=== PATIENT | female | born 2000 | race Two or more races ===

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

== ENCOUNTER → 2021-12-27 | Outpatient (REF) | payer BC | LOC: M LAB REF 22:17 | PROVIDERS: ATTEND Physician Assistant | DX: J02.9 Acute pharyngitis, unspecified (principal) ==

== ENCOUNTER → 2022-01-23 | Outpatient (REF) | payer BC, MEDICAID | LOC: M LAB REF 12:02 | PROVIDERS: ATTEND Physician Assistant | DX: B34.9 Viral infection, unspecified (principal) ==

== ENCOUNTER → 2022-11-06 | Outpatient (REF) | payer BC, MEDICAID | LOC: M SFHCWAGY 12:58 | PROVIDERS: ATTEND Nurse Practitioner Family | DX: Z12.4 Encounter for screening for malignant neoplasm of cervix (principal); Z01.419 Encounter for gynecological examination (general) (routine) without abnormal findings; Z77.9 Other contact with and (suspected) exposures hazardous to health ==

== ENCOUNTER 2023-07-16 10:25 | Outpatient (CLI) | payer MEDICAID ==
[~2023-07-16] VITALS: Ht 154.9 cm; Wt 68.2 kg
[2023-07-16 10:45] VITALS: BP 108/64
[2023-07-16] MEDS ORDERED: ONDA-83 PO (10:49)
[2023-07-16] MEDS ORDERED: CLON1TAB17 PO (10:49)
[2023-07-16] MEDS ORDERED: BUSP10TA PO (10:49)
[2023-07-16] MEDS ORDERED: PRENTAB9 PO (10:49)
[2023-07-16] MEDS ORDERED: LEXA1TAB2 PO (10:49)
[2023-07-16] MEDS ORDERED: MONI4CRE3 PV (10:55)
[2023-07-16] MEDS ORDERED: HOME MED LIST COMPLETE! XX SCH (10:55)
[2023-07-16 12:28] LABS: HEMATOCRIT 34.3 % (36.0-47.0); HEMOGLOBIN 11.8 g/dl (12.0-15.5); MEAN CORPUSCULAR HEMOGLOBIN 31.1 pg (27.0-33.0); MEAN CORPUSCULAR HGB CONC 34.4 g/dl (32.0-36.5); MEAN CORPUSCULAR VOLUME 90.5 fl (80.0-96.0); PLATELET COUNT, AUTOMATED 215 10^3/uL (150-450); RED BLOOD COUNT 3.79 10^6/uL (4.00-5.40); WHITE BLOOD COUNT 10.8 10^3/uL (4.0-10.0)
[2023-07-16 12:36] VITALS: BP 104/54
[2023-07-16 12:48] LABS: METHADONE URINE REFLEX NEGATIVE (NEGATIVE); OPIATES URINE REFLEX NEGATIVE (NEGATIVE); PHENCYCLIDINE URINE REFLEX NEGATIVE (NEGATIVE)
[2023-07-16 12:49] LABS: AMPHETAMINES URINE REFLEX NEGATIVE (NEGATIVE); BARBITURATES URINE REFLEX NEGATIVE (NEGATIVE); BENZODIAZEPINES URINE REFLEX NEGATIVE (NEGATIVE); CANNABINOIDS URINE REFLEX NEGATIVE (NEGATIVE); COCAINE METABOLITE URINE REFLE NEGATIVE (NEGATIVE)
[2023-07-16 12:53] LABS: ALBUMIN 2.7 G/DL (3.2-5.2); ALKALINE PHOSPHATASE 71 U/L (46-116); ALT/SGPT < 9 U/L (7.0-40); AST/SGOT 12 U/L (<34); BILIRUBIN,TOTAL 0.3 MG/DL (0.3-1.2); BLOOD UREA NITROGEN 10 MG/DL (9-23); CALCIUM LEVEL 9.2 MG/DL (8.5-10.1); CARBON DIOXIDE LEVEL 26 MMOL/L (20-31); CHLORIDE LEVEL 107 MMOL/L (98-107); CREATININE FOR GFR 0.56 MG/DL (0.55-1.30); GLOMERULAR FILTRATION RATE > 60.0 (>60); GLUCOSE, FASTING 92 MG/DL (60-100); POTASSIUM SERUM 4.1 MMOL/L (3.5-5.1); SODIUM LEVEL 137 MMOL/L (136-145); TOTAL PROTEIN 5.5 G/DL (5.7-8.2)
== END 2023-07-16 14:00 | disposition home or self-care (01) ==
LOC: M LDO 10:25
PROVIDERS: ATTEND Obstetrics & Gynecology
DX: O26.892 Other specified pregnancy related conditions, second trimester (principal); R42 Dizziness and giddiness; O99.342 Other mental disorders complicating pregnancy, second trimester; F41.1 Generalized anxiety disorder; F41.0 Panic disorder [episodic paroxysmal anxiety]; O44.02 Complete placenta previa NOS or without hemorrhage, second trimester; Z3A.25 25 weeks gestation of pregnancy
CPT/HCPCS: 59025; 80053; 80307; 85027; G0463

== ENCOUNTER 2023-07-27 16:20 | Outpatient (CLI) | payer BC, MEDICAID ==
[~2023-07-27] VITALS: Ht 154.9 cm; Wt 66.0 kg
[~2023-07-27 16:20] MED LIST: BUSP10TA PO; CLON1TAB17 PO; LEXA1TAB2 PO; MONI4CRE3 PV; ONDA-83 PO; PRENTAB9 PO
[2023-07-27] MEDS ORDERED: HOME MED LIST COMPLETE! XX SCH (16:40)
[2023-07-27 16:41] VITALS: BP 100/66
[2023-07-27] MEDS: FLUCONAZOLE 50MG TABLET PO ONE (17:49)
[2023-07-27] MEDS: LACTATED RINGER'S 1000 ML IV ONE (19:03)
[2023-07-27 19:06] VITALS: BP 102/62
[2023-07-27] MEDS: TERBUTALINE SULFATE 1 MG/ML 1ML VIAL SC ONE (19:58)
[2023-07-27] MEDS: LR 1,000 ML IV SCH (19:59)
[2023-07-27 20:01] VITALS: BP 105/64
[2023-07-27 21:10] VITALS: BP 110/73
[2023-07-27 23:15] LABS: GC DNA AMPLIFICATION NEGATIVE (NEGATIVE)
[2023-07-28] MEDS ORDERED: OXYTOCIN 30UNITS IN 0.9% NaCl 500ML IV BAG As Ordered ONE (00:06)
[2023-07-28 00:46] VITALS: BP 98/51
[2023-07-28 05:36] VITALS: BP 102/52
[2023-07-28 09:35] VITALS: BP 105/54
== END 2023-07-28 10:02 | disposition home or self-care (01) ==
LOC: M LDO 16:20
PROVIDERS: ATTEND Obstetrics & Gynecology
DX: O23.592 Infection of other part of genital tract in pregnancy, second trimester (principal); B37.9 Candidiasis, unspecified; Z3A.26 26 weeks gestation of pregnancy
CPT/HCPCS: 59025; 76815; 81001; 87070; 87077; 87086; 87205; 87810; 87850; G0463; J3105

== ENCOUNTER 2023-09-26 13:52 | Outpatient (CLI) | payer BC, MEDICAID ==
[~2023-09-26] VITALS: Ht 154.9 cm; Wt 73.8 kg
[~2023-09-26 13:52] MED LIST changes: +BUSP10TA; +CEFD1CAP9; +CEPH500C PO; +CLON1TAB8; +ESCITALOPRAM; +FLUC150T9 PO; +LEXA1TAB2; +MICO2CRE7 PV; +ONDA-284; +REGL10TA6 PO
[2023-09-26 14:09] VITALS: BP 109/67
[2023-09-26 15:37] LABS: HEMATOCRIT 34.4 % (36.0-47.0); HEMOGLOBIN 11.5 g/dl (12.0-15.5); MEAN CORPUSCULAR HEMOGLOBIN 29.5 pg (27.0-33.0); MEAN CORPUSCULAR HGB CONC 33.4 g/dl (32.0-36.5); MEAN CORPUSCULAR VOLUME 88.2 fl (80.0-96.0); PLATELET COUNT, AUTOMATED 185 10^3/uL (150-450); WHITE BLOOD COUNT 12.1 10^3/uL (4.0-10.0)
[2023-09-26 15:39] VITALS: BP 109/77
[2023-09-26 15:52] LABS: INR 0.95; PARTIAL THROMBOPLASTIN TIME 25.1 SECONDS (24.8-34.2); PROTHROMBIN TIME 12.5 SECONDS (12.5-14.5)
[2023-09-26] MEDS: LR 1,000 ML IV ONE (16:10)
== END 2023-09-26 18:10 | disposition home or self-care (01) ==
LOC: M LDO 13:52 → MERGE 13:52 → M LDO 18:10
PROVIDERS: ATTEND Advanced Practice Midwife
DX: O36.8130 Decreased fetal movements, third trimester, not applicable or unspecified (principal); O99.343 Other mental disorders complicating pregnancy, third trimester; F41.0 Panic disorder [episodic paroxysmal anxiety]; Z3A.35 35 weeks gestation of pregnancy
CPT/HCPCS: 36415; 59025; 76815; 76817; 76820; 85027; 85384; 85460; 85610; 85730; G0463

== ENCOUNTER → 2023-10-03 | Outpatient (REF) | payer BC, MEDICAID ==
[~2023-10-03] MED LIST changes: +CLON2TAB14 PO
== END ==
LOC: M SFHCWAGY 12:10
PROVIDERS: ATTEND Specialist
DX: N39.0 Urinary tract infection, site not specified (principal); Z34.83 Encounter for supervision of other normal pregnancy, third trimester

== ENCOUNTER 2023-10-05 14:00 | Outpatient (CLI) | payer BC, MEDICAID ==
[~2023-10-05] VITALS: Ht 154.9 cm; Wt 73.7 kg
[~2023-10-05 14:00] MED LIST changes: -CLON2TAB14 PO
[2023-10-05] MEDS ORDERED: CLON2TAB14 PO (14:11)
[2023-10-05] MEDS ORDERED: HOME MED LIST COMPLETE! XX SCH (14:15)
[2023-10-05 14:20] VITALS: BP 123/76
[2023-10-05 14:22] VITALS: O2SAT 97
== END 2023-10-05 15:23 | disposition home or self-care (01) ==
LOC: M LDO 14:00
PROVIDERS: ATTEND Specialist
DX: O26.893 Other specified pregnancy related conditions, third trimester (principal); O99.343 Other mental disorders complicating pregnancy, third trimester; M46.1 Sacroiliitis, not elsewhere classified; F41.0 Panic disorder [episodic paroxysmal anxiety]; Z3A.36 36 weeks gestation of pregnancy
CPT/HCPCS: 59025; G0463

== ENCOUNTER → 2023-10-09 | Outpatient (CLI) | payer BC, MEDICAID ==
[~2023-10-09] MED LIST changes: +CLON2TAB14 PO
== END ==
LOC: M PLAIMG 09:34
PROVIDERS: ATTEND Nurse Practitioner Family
DX: R55 Syncope and collapse (principal)

== ENCOUNTER 2023-10-12 16:50 | Outpatient (CLI) | payer BC, MEDICAID ==
[~2023-10-12] VITALS: Ht 154.9 cm; Wt 74.5 kg
[~2023-10-12 16:50] MED LIST changes: -LEXA1TAB2; -ONDA-284; +ONDA-284 SL
[2023-10-12 17:01] VITALS: BP 106/65; O2SAT 97
[2023-10-12 19:02] VITALS: BP 110/68
[2023-10-12 19:19] LABS: GC DNA AMPLIFICATION NEGATIVE (NEGATIVE)
== END 2023-10-12 20:09 | disposition home or self-care (01) ==
LOC: M LDO 16:50
PROVIDERS: ATTEND Obstetrics & Gynecology
DX: O47.1 False labor at or after 37 completed weeks of gestation (principal); O99.343 Other mental disorders complicating pregnancy, third trimester; F41.0 Panic disorder [episodic paroxysmal anxiety]; Z3A.37 37 weeks gestation of pregnancy
CPT/HCPCS: 59025; 81001; 87086; 87810; 87850; G0463

== ENCOUNTER 2023-10-18 14:14 | Outpatient (CLI) | payer BC, MEDICAID ==
[~2023-10-18] VITALS: Ht 154.9 cm; Wt 74.9 kg
[~2023-10-18 14:14] MED LIST changes: +LEXA1TAB2; +ONDA-284; -ONDA-284 SL
[2023-10-18 14:33] VITALS: BP 111/74
[2023-10-18] MEDS ORDERED: HOME MED LIST COMPLETE! XX SCH (14:40)
== END 2023-10-18 15:47 | disposition home or self-care (01) ==
LOC: M LDO 14:14
PROVIDERS: ATTEND Obstetrics & Gynecology
DX: O47.1 False labor at or after 37 completed weeks of gestation (principal); O99.343 Other mental disorders complicating pregnancy, third trimester; F41.0 Panic disorder [episodic paroxysmal anxiety]; Z3A.38 38 weeks gestation of pregnancy
CPT/HCPCS: 59025; G0463

== ENCOUNTER 2023-10-21 20:53 | Inpatient (IN) | payer BC, MEDICAID ==
[~2023-10-21] VITALS: Ht 154.9 cm; Wt 75.4 kg
[~2023-10-21 20:53] MED LIST changes: -LEXA1TAB2; -ONDA-284; +ONDA-284 SL
[2023-10-21 21:23] VITALS: BP 120/82; O2SAT 98
[2023-10-21] MEDS ORDERED: OXYTOCIN DRIP 30 UNITS in IV 1 EA IV PRN (21:25)
[2023-10-21] MEDS ORDERED: TRANEXAMIC ACID INJection 1,000 MG in NS 100 ML IV PRN (21:25)
[2023-10-21] MEDS ORDERED: LIDOCAINE 1% MDV 20ML VIAL INFIL PRN (21:25)
[2023-10-21 21:55] LABS: HEMATOCRIT 36.9 % (36.0-47.0); HEMOGLOBIN 12.5 g/dl (12.0-15.5); MEAN CORPUSCULAR HEMOGLOBIN 29.2 pg (27.0-33.0); MEAN CORPUSCULAR HGB CONC 33.9 g/dl (32.0-36.5); MEAN CORPUSCULAR VOLUME 86.2 fl (80.0-96.0); PLATELET COUNT, AUTOMATED 189 10^3/uL (150-450); RED BLOOD COUNT 4.28 10^6/uL (4.00-5.40); WHITE BLOOD COUNT 14.7 10^3/uL (4.0-10.0)
[2023-10-21 22:48] VITALS: BP 131/79
[2023-10-21] MEDS: miSOPROStol 50MCG 1/2 TABLET PO SCH (22:48)
[2023-10-21] MEDS ORDERED: ONDANSETRON 4MG 2ML VIAL IV PRN (22:50)
[2023-10-21 23:05] LABS: HEPATITIS C VIRUS ABY INDEX < 0.02 INDEX (<0.8)
[2023-10-21 23:49] VITALS: BP 119/75
[2023-10-22] VITALS (48 sets, daily range): BP systolic 91–139; BP diastolic 55–78; O2SAT 97–100
[2023-10-22] MEDS ORDERED: NALOXONE INJ 0.4MG/1ML VIAL IV PRN (02:15)
[2023-10-22] MEDS ORDERED: diphenhydrAMINE 50MG/ML VIAL IV PRN (02:15)
[2023-10-22] MEDS ORDERED: LR 500 ML IV PRN (02:15)
[2023-10-22] MEDS ORDERED: ePHEDrine SULFATE 25 MG/5 ML(5MG/ML) SYRINGE IVP PRN (02:15)
[2023-10-22] MEDS ORDERED: EPIDURAL/PCA KEYS XX PRN (02:15)
[2023-10-22] MEDS: FENTANYL/ROPIVACAINE/NACL BAG 100 ML EPIDURAL SCH (03:02)
[2023-10-22] MEDS: ONDANSETRON 4MG 2ML VIAL IV PRN ×2 (03:30→11:44)
[2023-10-22] MEDS: ACETAMINOPHEN 500 MG TAB PO PRN (03:45)
[2023-10-22] MEDS: OXYTOCIN DRIP 30 UNITS in IV 1 EA IV SCH (04:19)
[2023-10-22] MEDS: LR 1,000 ML IV SCH (04:19)
[2023-10-22] MEDS: PRENATAL VITAMINS CHEWABLE TABLET PO SCH (09:00)
[2023-10-22] MEDS: OXYTOCIN DRIP 30 UNITS in IV 1 EA IV PRN (09:51)
[2023-10-22] MEDS: METHYLERGONOVINE MALEATE 0.2MG/ML 1ML VIAL IM PRN (10:06)
[2023-10-22] MEDS ORDERED: RHO(D) IMMUNE GLOBULIN/MALTOSE 500MCG(2500IU)/2.2ML VIAL (WINRHO) IM SCH (10:25)
[2023-10-22] MEDS ORDERED: DOCUSATE SODIUM 100MG CAPSULE PO PRN (10:25)
[2023-10-22] MEDS ORDERED: METHYLERGONOVINE MALEATE 0.2 MG TAB PO PRN (10:25)
[2023-10-22] MEDS: IBUPROFEN 600MG TAB PO PRN (11:23)
[2023-10-22] MEDS ORDERED: CLON1TAB17 PO (11:51)
[2023-10-22] MEDS ORDERED: CLON1TAB8 PO (11:58)
[2023-10-22] MEDS: busPIRone 10 MG TAB PO SCH (12:15)
[2023-10-22] MEDS: ESCITALOPRAM OXALATE 10 MG TAB (LEXAPRO) PO SCH (12:15)
[2023-10-22] MEDS: DIBUCAINE 1% OINTMENT 30GM TOP PRN (13:27)
[2023-10-22] MEDS: clonazePAM 1 MG TAB PO SCH (21:53)
[2023-10-23] MEDS: ACETAMINOPHEN TAB 650MG DOSE (2X325MG) PO PRN (03:01)
[2023-10-23 06:00] VITALS: BP 102/60; O2SAT 98
[2023-10-23] MEDS: IBUPROFEN 800 MG TAB PO PRN (08:25)
[2023-10-24] MEDS ORDERED: MEASLES,MUMPS,RUBELLA VACCINE INJ (MMR-II) SC.IMMUN ONE (09:00)
== END 2023-10-23 16:45 | disposition home or self-care (01) | DRG 560 ==
LOC: M LDI 20:53 → M OBS 10-22 12:47
PROVIDERS: ADMIT Obstetrics & Gynecology; ATTEND Advanced Practice Midwife
PROC: 3E0P7GC Introduction of Other Therapeutic Substance into Female Reproductive, Via Natural or Artificial Opening (ICD-10-PCS; 2023-10-21)
PROC: 10E0XZZ Delivery of Products of Conception, External Approach (ICD-10-PCS; principal; 2023-10-22)
PROC: 0HQ9XZZ Repair Perineum Skin, External Approach (ICD-10-PCS; 2023-10-22)
DX: O69.81X0 Labor and delivery complicated by cord around neck, without compression, not applicable or unspecified (principal); O77.0 Labor and delivery complicated by meconium in amniotic fluid; Z3A.39 39 weeks gestation of pregnancy; Z79.899 Other long term (current) drug therapy; O70.0 First degree perineal laceration during delivery; Z37.0 Single live birth

== ENCOUNTER → 2024-10-21 | Outpatient (CLI) | payer BC, MEDICAID ==
[~2024-10-21] MED LIST changes: +CLON1TAB8 PO
[2024-10-21 13:50] LABS: BASO # 0.1 10^3/uL (0.0-0.2); BASO % 0.7 % (0.0-1.0); EOS # 0.1 10^3/uL (0.0-0.5); EOS % 1.6 % (0.0-3.0); LYMPH # 2.6 10^3/uL (1.5-5.0); LYMPH % 31.0 % (24.0-44.0); MONO # 0.8 10^3/uL (0.0-0.8); MONO % 9.1 % (2.0-8.0); NEUTROPHILS # 4.8 10^3/uL (1.5-8.5); NEUTROPHILS % 57.2 % (36.0-66.0); PLATELET COUNT, AUTOMATED 260 10^3/uL (150-450)
[2024-10-21 14:21] LABS: IRON (FE) 117.0 UG/DL (50-170); PERCENT SATURATION 29.7 % (13.2-45.0)
[2024-10-21 14:25] LABS: FREE T4 1.1 NG/DL (0.89-1.76)
[2024-10-21 14:28] LABS: TOTAL 25(OH) VITAMIN D 48.2 NG/ML (20.0-100.0); VITAMIN B12 LEVEL 319.0 PG/ML (211-911)
== END ==
LOC: M LAB 12:29
PROVIDERS: ATTEND Nurse Practitioner Family
DX: R53.83 Other fatigue (principal)

== ENCOUNTER → 2025-01-04 | Outpatient (REF) | payer BC, MEDICAID | LOC: M LAB REF 12:04 | PROVIDERS: ATTEND Physician Assistant | DX: B34.9 Viral infection, unspecified (principal) ==

== ENCOUNTER 2025-01-12 10:57 | Emergency (ER) | payer BC, MEDICAID ==
[~2025-01-12] VITALS: Ht 152.4 cm; Wt 66.3 kg
[2025-01-12 11:04] VITALS: TEMP 97.9
[2025-01-12 12:20] LABS: KETONE, URINE AUTO RFX NEGATIVE (NEGATIVE); MUCUS, URINE RFX SMALL (NEGATIVE); NITRITE, URINE AUTO RFX NEGATIVE (NEGATIVE); RBC, URINE AUTO RFX 3 /HPF (0-3); SQUAM EPITHELIAL CELL UR AURFX 0 /HPF (0-6); WBC, URINE AUTO RFX 1 /HPF (0-3)
[2025-01-12 12:22] LABS: BASO # 0.0 10^3/uL (0.0-0.2); BASO % 0.1 % (0.0-1.0); EOS # 0.0 10^3/uL (0.0-0.5); EOS % 0.1 % (0.0-3.0); LYMPH # 1.8 10^3/uL (1.5-5.0); LYMPH % 22.5 % (24.0-44.0); MONO # 0.5 10^3/uL (0.0-0.8); MONO % 6.8 % (2.0-8.0); NEUTROPHILS # 5.6 10^3/uL (1.5-8.5); NEUTROPHILS % 70.4 % (36.0-66.0); PLATELET COUNT, AUTOMATED 217 10^3/uL (150-450)
[2025-01-12 12:34] LABS: LEUKOCYTE ESTERASE UR AUTO RFX 1+ (NEGATIVE)
[2025-01-12 12:47] LABS: ALT/SGPT 22 U/L (7.0-40); AST/SGOT 26 U/L (<34); CALCIUM LEVEL 9.2 MG/DL (8.5-10.1); CARBON DIOXIDE LEVEL 28 MMOL/L (20-31); CHLORIDE LEVEL 105 MMOL/L (98-107); CREATININE FOR GFR 0.85 MG/DL (0.55-1.30); GLOMERULAR FILTRATION RATE > 90.0 (>60); POTASSIUM SERUM 4.1 MMOL/L (3.5-5.1); SODIUM LEVEL 143 MMOL/L (136-145)
[2025-01-12 12:49] LABS: HCG, SERUM QUALITATIVE NEGATIVE (NEGATIVE)
[2025-01-12] MEDS ORDERED: DOXY100C3 PO (12:59)
[2025-01-12] MEDS ORDERED: [UNRECOGNIZED DRUG - CODE] PO (13:00)
[2025-01-12 13:34] LABS: Trichomonas vaginalis (AMP) NOT DETECTED (NEGATIVE)
[2025-01-12 13:58] LABS: GC DNA AMPLIFICATION NEGATIVE (NEGATIVE)
[2025-01-12] MEDS: NS (Normal Saline) 0.9% 1,000 ML IV ONE (14:20)
[2025-01-12] MEDS ORDERED: ISOVUE-370 76% 100 ML VIAL As Ordered ONE (15:39)
[2025-01-12] MEDS: KETOROLAC 30 MG/ML 1 ML VIAL IV ONE (16:07)
[2025-01-12] MEDS ORDERED: PROM25TA12 PO (17:26)
[2025-01-12 17:34] VITALS: BP 102/66; O2SAT 99
== END 2025-01-12 17:40 | disposition home or self-care (01) ==
LOC: M ED 10:57
DX: R10.9 Unspecified abdominal pain (principal); J91.8 Pleural effusion in other conditions classified elsewhere; Z79.899 Other long term (current) drug therapy
CPT/HCPCS: 74177; 76830; 76856; 80048; 80076; 81001; 83690; 84703; 85025; 87086; 87661; 87810; 87850; 93976; 96361; 96374; 99284; J1885; Q9967

== ENCOUNTER → 2025-02-16 | Outpatient (REF) | payer BC, MEDICAID ==
[~2025-02-16] MED LIST changes: +DOXY100C3 PO; +PROM25TA12 PO; +[UNRECOGNIZED DRUG - CODE] PO
== END ==
LOC: M PLALAB 10:18
PROVIDERS: ATTEND Student in an Organized Health Care Education/Training Program
DX: N87.1 Moderate cervical dysplasia (principal)

== ENCOUNTER 2025-02-27 11:23 | Emergency (ER) | payer BC, MEDICAID ==
[~2025-02-27] VITALS: Ht 152.4 cm; Wt 69.5 kg
[2025-02-27 12:13] LABS: BASO # 0.1 10^3/uL (0.0-0.2); BASO % 0.6 % (0.0-1.0); EOS # 0.1 10^3/uL (0.0-0.5); EOS % 0.9 % (0.0-3.0); LYMPH # 2.5 10^3/uL (1.5-5.0); LYMPH % 24.3 % (24.0-44.0); MONO # 0.7 10^3/uL (0.0-0.8); MONO % 6.9 % (2.0-8.0); NEUTROPHILS # 7.0 10^3/uL (1.5-8.5); NEUTROPHILS % 67.0 % (36.0-66.0); PLATELET COUNT, AUTOMATED 312 10^3/uL (150-450)
[2025-02-27 12:34] LABS: CALCIUM LEVEL 9.4 MG/DL (8.5-10.1); CARBON DIOXIDE LEVEL 26 MMOL/L (20-31); CHLORIDE LEVEL 104 MMOL/L (98-107); CREATININE FOR GFR 0.78 MG/DL (0.55-1.30); GLOMERULAR FILTRATION RATE > 90.0 (>60); POTASSIUM SERUM 4.5 MMOL/L (3.5-5.1); SODIUM LEVEL 140 MMOL/L (136-145)
[2025-02-27 12:35] LABS: INR 0.9
[2025-02-27 12:40] LABS: HCG, SERUM QUALITATIVE NEGATIVE (NEGATIVE)
[2025-02-27 12:43] LABS: KETONE, URINE AUTO RFX NEGATIVE (NEGATIVE); LEUKOCYTE ESTERASE UR AUTO RFX NEGATIVE (NEGATIVE); MUCUS, URINE RFX SMALL (NEGATIVE); NITRITE, URINE AUTO RFX NEGATIVE (NEGATIVE); RBC, URINE AUTO RFX 1 /HPF (0-3); SQUAM EPITHELIAL CELL UR AURFX 2 /HPF (0-6); WBC, URINE AUTO RFX 0 /HPF (0-3)
[2025-02-27] MEDS ORDERED: ISOVUE-370 76% 100 ML VIAL As Ordered ONE (13:39)
[2025-02-27] MEDS: NS (Normal Saline) 0.9% 1,000 ML IV ONE (13:41)
[2025-02-27 13:49] LABS: C REACTIVE PROTEIN QUANTITATIV < 0.50 MG/DL (<1.0)
[2025-02-27] MEDS ORDERED: NITR2OI PR (16:21)
[2025-02-27] MEDS ORDERED: MIRA3350 PO (16:21)
[2025-02-27 16:27] VITALS: BP 123/74; TEMP 98; O2SAT 97
== END 2025-02-27 16:29 | disposition home or self-care (01) ==
LOC: M ED 12:53
DX: K60.0 Acute anal fissure (principal); R10.9 Unspecified abdominal pain; N13.39 Other hydronephrosis; Z79.2 Long term (current) use of antibiotics; Z79.899 Other long term (current) drug therapy
CPT/HCPCS: 74177; 80048; 81001; 84703; 85025; 85610; 85652; 85730; 86140; 96360; 96361; 99284; Q9967

== ENCOUNTER → 2025-03-09 | Outpatient (REF) | payer BC, MEDICAID ==
[~2025-03-09] MED LIST changes: +MIRA3350 PO; +NITR2OI PR
[2025-03-09 14:34] LABS: GC DNA AMPLIFICATION NEGATIVE (NEGATIVE)
== END ==
LOC: M LAB REF 11:55
DX: J02.9 Acute pharyngitis, unspecified (principal)